=== PATIENT | male | born 1970 | race Caucasian/White ===

== ENCOUNTER 2016-03-16 08:05 | Emergency (ER) | payer MEDICAID, OTHER ==
[2016-03-16 08:23] VITALS: TEMP 98.3; BMI 25.0
[2016-03-16] MEDS ORDERED: OXYCODONE HCL 5 MG TABLET PO ONE (08:47)
[2016-03-16] MEDS ORDERED: ONDANSETRON HCL 4 MG ODT TAB PO ONE (08:47)
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
[2016-03-16] MEDS ORDERED: LIDOCAINE 2% 5 ML (PRESERVATIVE FREE) VIAL INF ONE (08:57)
[2016-03-16] MEDS ORDERED: LIDOCAINE 2% 5 ML (PRESERVATIVE FREE) VIAL ONE (09:36)
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
[2016-03-16 11:30] VITALS: BP 126/81; PULSE 72
== END 2016-03-16 11:25 | disposition home or self-care (01) ==
LOC: ED 08:05
DX: S01.81XA Laceration without foreign body of other part of head, initial encounter (principal); V49.9XXA Car occupant (driver) (passenger) injured in unspecified traffic accident, initial encounter; Y93.9 Activity, unspecified; Y92.410 Unspecified street and highway as the place of occurrence of the external cause; M53.82 Other specified dorsopathies, cervical region
CPT/HCPCS: 12053; 70450; 72125; 99283; J2001; J3490